=== PATIENT | female | born 1960 | race Caucasian/White ===

== ENCOUNTER 2016-04-30 13:40 | Emergency (ER) | payer MEDICARE, OTHER | END 2016-04-30 16:18 | disposition left against medical advice (07) | LOC: ER1 13:40 | DX: Z53.21 Procedure and treatment not carried out due to patient leaving prior to being seen by health care provider (principal) | CPT/HCPCS: 93005 ==

== ENCOUNTER 2021-10-23 10:35 | Emergency (ER) | payer MEDICARE, OTHER | END 2021-10-23 12:05 | disposition home or self-care (01) | LOC: ER1 10:35 | DX: G89.18 Other acute postprocedural pain (principal); M54.50 Low back pain, unspecified; I48.91 Unspecified atrial fibrillation; I10 Essential (primary) hypertension; Z88.6 Allergy status to analgesic agent; Z88.1 Allergy status to other antibiotic agents; Z88.8 Allergy status to other drugs, medicaments and biological substances; Z79.01 Long term (current) use of anticoagulants; Z95.0 Presence of cardiac pacemaker | CPT/HCPCS: 99283 ==